=== PATIENT | male | born 1975 | race Caucasian/White ===

== ENCOUNTER 2025-07-06 21:59 | Emergency (ER) | payer BC, SELFPAY ==
--- OUTSIDE RECORDS SUMMARY | 2025-06-10 06:00 | XMS_ITS ---
Author Organization [facility] Address [address] [facility] [address] [place] [id number] Care Team Providers Care Cash Management Officer Name Role Phone Cole Jenkins Unavailable [phone] Allergies Allergen (clinical drug ingredient) Drug/Non Drug Allergy documented on EMR Reaction Allergy Type Onset Date Status Penicillin Unknown Drug Allergy Active Substance with sulfonamide structure and antibacterial mechanism of action (substance) Sulfa Antibiotics Unknown Drug Allergy Active Reason For Referral Diagnosis 1 Pain in left foot (M 79.672) Diagnosis 2 Status post foot levy debbie (Z98.890) [facility] Referring Provider First Name Cole Referring Provider Last Name Gregory Referring Provider Speciality Family Pra ctice Referred Provider RAFA KENT General Notes Dari Tineo 2024 08:50:54 AM > faxed to [facility] (Dr. Kent) Referral Priority Routine REASON FOR VISIT to get established and needs Podiatry referral Medications Medication SIG (Take, Route, Frequency, Duration) Notes Start Date End Date Status Sildenafil Citrate 100 MG 1 tablet as ne eded Orally Once a day Active DULoxetine HCl 60 MG 1 capsule Orally On ce a day; Duration: 30 days 06/10/2025 Active Nabumetone 750 MG 2 tabs Orally daily; Duration: 30 days 06/10/2025 Active Lisinopril 20 MG 1 tablet Orally Once a day Active traZODone HCl 150 MG 1 tablet at bedtime Orally Once a day Active Problems Problem Type SNOMED Code ICD Code Onset Dates Problem Status W/U Status Risk Notes Problem Essential hypertension (54229932) Essential hypertension (I10) Active confirmed Problem Postprocedural states (102847132) Status post left foot surgery (Z98.890) Active confirmed Vital Signs Weight 239 lbs 06/10/2025 Blood pressure systolic 130 mm Hg 06/10/20 25 Blood pressure diastolic 80 mm Hg 025 Heart Rate 80 /min 06/10/2025 Height 74 in 06/10/2025 BMI 30.68 kg/m2 06/10/2025 Encounters Encounter Location Date Provider Diagnosis [facility] [address] [place] [id number] 06/10/2025 Colekay Jenkins Pain in left foot M7 9.672 ; Polyarthralgia M25.50 ; Essential hypertension I10 ; Depressive disorder F32.A and Status post left foot surgery Z98.890 Assessments Encounter Date Diagnosis (ICD Code) Assessment Notes Treatment Notes Treatment Clinical Notes Section Notes 06/10/2025 Pain in left foot (ICD-10 - M79.672) 06/10/2025 Polyarthralgia (ICD-10 - M25.50) 06/10/2025 Essential hypertension (ICD-10 - I10) 06/10/2025 Depressive disorder (ICD-10 - F32.A) 06/10/2025 Status post left foot surgery (ICD-10 - Z98.890) Plan Of Treatment Medication Medication Name Sig Start Date Stop Date Notes DULoxetine HCl 60 MG 1 capsule Orally On ce a day; Duration: 30 days 06/10/2025 Nabumetone 750 MG 2 tabs Orally daily; Duration: 30 days 06/10/2025 Lisinopril 20 MG 1 tablet Orally Once a day Escitalopram Oxalate 10 MG 1 tablet Orally Once a day Meloxicam 15 MG 1 tablet Orally Once a day Referrals Referral Date Details 06/10/2025 06/10/2025 Next Appt Details Follow Up: via phone to keyla castillo progress,6 Months, Reason: Progress Notes * Siddhartha LEONE BDOB:1975 ( 49 yo M)Acc No.[id number]:06/10/2025 Progress Notes Patient: Obinna GONZALO Siddhartha Méndez Provider: Honey Jenkins M.D. :1975 A ge:49 Y S ex:Male Date:06/10/2025 Address:[address] [place], [place] [address], [id number] Subjective: * Chief Complaints: * 1 . to get established and needs Podiatry referral. * HPI: H PI: 49 year old male presents with c/o Patient is here today for?Pt here to establish care, pt was preciously seen by Dr. Kang Damon in [place]. A nkle/Foot: c/o Pain P t complains of lt foot pain. Pt states he has had multiple surgeries on lt foot, last on in January 2022. Pt states pain is constant and unbearable at time. Pt requesting referral to podiatry. * Medical History: H ypertension, Osteoarthritis, Insomnia, Depression, MRSA. * Surgical History: L T Foot 03/2021, RT Hand 04/2024. * Hospitalization/Major Diagno stic Procedure: D enies Past Hospitalization. * Family History: F ather: . M other: alive 68 yrs, diagnosed with Cancer, Hypertension, Diabetes.? * Social History: C URRENT TOBACCO USE: No . C affeine: yes, frequency:. Alcohol: no. * Medications: T aking Escitalopram Oxalate 10 MG Tablet 1 tablet Orally Once a day , Taking Sildenafil Citrate 100 MG Tablet 1 tablet as needed Orally Once a day , Taking Lisinopril 20 MG Tablet 1 tablet Orally Once a day , Taking traZODone HCl 150 MG Tablet 1 tablet at bedtime Orally Once a day , Taking Meloxicam 15 MG Tablet 1 tablet Orally Once a day , Medication List reviewed and reconciled with the patient * Allergies: P enicillin, Sulfa Antibiotics. Objective: * Vitals: W t: 239, Temp: 98.0, BP: 130/80, HR: 80, Nurse: mil, Ht: 74, BMI:30.68. * Examination: G eneral Examination: General Appearance: N AD. H EENT: u nremarkable.?Neck: s upple, no lymphadenopathy. H eart: R SR. L ungs: c lear to auscultation. N eurologic Exam: I ntact, gait normal. S kin: n ormal, no rash. P eripheral pulses: n ormal (2+) bilaterally. E xtremities: n o leg edema, post surgical changes present on dorsum of left foot, low arch noted. Assessment: * Assessment: 1. P ain in left foot - M79.672 (Primary) 2 . P olyarthralgia - M25.50 3 . E ssential hypertension - I10 4 . D epressive disorder - F32.A 5 . S tatus post left foot surgery - Z98.890 Plan: * Treatment: 2. P olyarthralgia Stop Meloxicam Tablet, 15 MG, 1 tablet, Orally, Once a day; S tart Nabumetone Tablet, 750 MG, 2 tabs, Orally, daily, 30 days, 60 Tablet, Refills 0. 3. E ssential hypertension Continue Lisinopril Tablet, 20 MG, 1 tablet, Orally, Once a day. 4. D epressive disorder Stop Escitalopram Oxalate Tablet, 10 MG, 1 tablet, Orally, Once a day; S tart DULoxetine HCl Capsule Delayed Release Particles, 60 MG, 1 capsule, Orally, Once a day, 30 days, 30 Capsule. ? 5. O thers Referral To: RAFA KENT Reason: * Procedure Codes: 1 036F TOBACCO NON-USER, 3075F SYST BP GE 130 - 139MM HG, 3079F DIAST BP 80-89 MM HG * Follow Up: v ia phone to report progress,6 Months * Images: Billing Information: * Visit Code: 29025 Office Visit, New Pt., Level 4. * Procedure Codes: 1036F TOBACCO NON-USER. 3075F SYST BP GE 130 - 139MM HG. 3079F DIAST BP 80-89 MM HG. * Electronic signature of Carmita Jenkins MD on 07/06/2025 at 10:13 PM EST Sign off status: Pending * Provider: Honey Jenkins M.D. Date: 08/11/2024 Generated for Tong wadsworth/Josse/Ritchie on: 10:13 PM EST History and Physical Notes * HPI (History of Present Illness) Category Sub-Category Detail Notes Category Not es Ankle/Foot Pain Pt complains of lt foot pain. Pt states he has had multiple surgeries on lt foot, last on in January 2022. Pt states pain is constant and unbearable at time. Pt requesting referral to podiatry HPI Patient is here today for Pt her e to establish care, pt was preciously seen by Dr. Kang Damon in [place] Examination Category Sub-Category Detail Notes Category Not es General Examination HEENT: unremarkable Heart: RSR Lungs: clear to auscultatio n Extremities: no leg edema, post s urgical changes present on dorsum of left foot, low arch noted General Appearance: NAD Skin: normal, no rash Neurologic Exam: Intact, gait normal Neck: supple, no lymphaden opathy Peripheral pulses: normal (2+) bilatera lly Consultation Request Notes Referral Date Referring Provider Referred Provider Not es 06/10/2025 Cole Jenkins BENJAMIN
--- OUTSIDE RECORDS SUMMARY | 2025-07-06 22:13 | XMS_ITS | Patient Health Record ---
[facility] Address [address] [place] [id number] Care Team Providers Care Dietetic Tech Name Role Phone Gregory Cole Unavailable [phone] Allergies Allergen (clinical drug ingredient) Drug/Non Drug Allergy documented on EMR Reaction Allergy Type Onset Date Status Penicillin Unknown Drug Allergy Active Substance with sulfonamide structure and antibacterial mechanism of action (substance) Sulfa Antibiotics Unknown Drug Allergy Active Reason For Referral Diagnosis 1 Pain in left foot (M 79.672) Diagnosis 2 Status post foot levy debbie (Z98.890) [facility] Referring Provider First Name Cole Referring Provider Last Name Gregory Referring Provider Speciality Family [facility] Referred Provider RAFA KENT General Notes Dari Tineo 2024 08:50:54 AM > faxed to [facility] (Dr. Kent) Referral Priority Routine Medications Medication SIG (Take, Route, Frequency, Duration) [...] at bedtime Orally Once a day Active tiZANidine HCl 2 MG 1 or 2 tablets Orally 3 times a day As needed 06/11/2025 Active Problems Problem Type SNOMED Code ICD Code Onset Dates Problem Status W/U Status Risk Notes Problem Essential hypertension (74217024) Essential hypertension (I10) Active confirmed Problem Postprocedural states (361335676) Status post left foot surgery (Z98.890) Active confirmed Vital Signs Heart Rate 80 /min 06/10/2025 Blood pressure diastolic 80 mm Hg 06/10/2025 Height 74 in 06/10/2025 Blood pressure systolic 130 mm Hg 06/10/2025 Weight 239 lbs 06/10/2025 BMI 30.68 kg/m2 06/10/2025 Encounters Encounter Location Date Provider Diagnosis [facility] [address] [facility] [address] [facility] [address] [place] [id number] 06/10/2025 Cole [place] Pain in left foot M7 9.672 ; Polyarthralgia M25.50 ; Essential hypertension I10 ; Depressive disorder F32.A and Status post left foot surgery Z98.890 [facility] [address] [facility] [address] [place] [id number] 06/11/2025 Cole [place] Assessments Encounter Date Diagnosis (ICD Code) Assessment Notes Treatment Notes Treatment Clinical Notes Section Notes 06/10/2025 Polyarthralgia (ICD-10 - M25.50) 06/10/2025 Pain in left foot (ICD-10 - M79.672) 06/10/2025 Essential hypertension (ICD-10 - I10) 06/10/2025 Depressive disorder (ICD-10 - F32.A) 06/10/2025 Status post left foot surgery (ICD-10 - Z98.890) Plan Of Treatment No Information Insurance Providers Payer Name Payer Address Payer Phone Subscriber Number Group Number Insured Name Patient Relationship to Insured Coverage Start Date Coverage End Date NICO AMATO CROSSUE [facility] [address] [place] [address] [id number] Siddhartha Borrego Self - patient is the insured Medical (General) History Medical History History ICD Code hypertension osteoarthritis insomnia depression MRSA Surgical History Surgery Date(Month/Year) LT Foot 03/2021 RT Hand 04/2024
--- OUTSIDE RECORDS SUMMARY | 2025-07-06 22:13 | XMS_ITS | Data Portability ---
Author Organization [place] [facility] [address] Address [address] [facility] [address] [place] [address] Care Team Providers Care Tax Credit Leasing Consultant Name Role Phone MARCUS DUVAL Referring Provider [phone] Assessment Encounter Date Assessment Date Assessment LastModified by Organization Details LastModified Time 06/17/2025 06/17/2025 This is a 49-year-old male with a history of a left foot fracture with subsequent multiple surgeries and infection, presenting with worsening chronic left foot pain. He has severe post-traumatic arthritis of the left foot with significant deformity, including arch collapse and flatfoot, secondary to his prior trauma and naviculectomy and antibiotic spacer. Imaging review confirms extensive damage to the midfoot, particularly the talonavicular and cuneiform region, with multiple bone fragments present and severe arthritis. The patient's condition is complex and high-risk for further intervention. Any further operative management, such as a stabilizing fusion, carries a highly elevated risk of reinfection due to being seeded with staph, which could lead to a worse outcome, including potential amputation. I also would avoid steroid injections due to the risk of reactivating a latent infection. After discussion at this time we elected to proceed with conservative management and surgery as a last resort. - Imaging: Left foot X-rays were reviewed. - Findings show arch collapse and flatfoot deformity. - Multiple bone fragments are visible. - There is evidence of prior navicular bone resection and placement of an antibiotic spacer. - The talus, navicular, and cuneiform region is severely degenerated, while the calcaneocuboid and tarsometatarsal joints appear mostly preserved. High complexity, lengthy surgical discussion, prescription drug management, prescription for custom orthotics and Karolina brace. [email or web address] Not available 06/20/2025 23:22:46 Plan of Treatment Reminders Order Date Submit Date Provider Last Modified By Organization Details Last Modified Time Details Appointments None recorded. Lab None recorded. Referral None recorded. Procedures None recorded. Surgeries None recorded. Imaging XR, ankle + foot 2024 025 [facility] [address] [place], [address], 17:57:07 Medication Orders gabapentin 300 mg capsule 2024 025 [facility], [address], [address], 14:49:17 Patient TargetsNo targets recorded. Patient InstructionsNo instructions recorded. Reason for Referral None Reported. Results Created Date Observation Date Name Description Value Unit Range Abnormal Flag Note LastModifiedBy Organization Detail LastModifiedTime 06/18/2006/17/2025 XR, ankle + foot [facility] [address] [facility] [place] [address] Patiamalia morales Name: DOV morales : [address] morales 81 Orderi ng Provid er: MARCIO IN RONNA KAILEY EXAM DATE: 2024 EXAM: XR LT FOOT/A NKLE COMPLE TE COMPAR FELY: None. HISTOR Y: Left foot and ankle pain FINDIN GS: 3 views of the left ankle. No acute fractu re or disloc ation. There is modera te arthro siria of the left ankle. Small margin al osteop hytes are identi fied. 3 views of the left foot. There is severe arthro siria throug hout the hindfo ot and midfoo t. There is disorg anizat ion as well as collap se of the metata rsal bones. There is severe pes planus . This has appear ance most typica l for [place] t arthro siria. There is collap se of the talus. Bulky osteop hytes are identi fied. There is modera te hallux valgus deform ity of the first metata rsal phalan geal joint. IMPRES TIM: 1. Severe [place] t arthro siria of the hindfo ot and midfoo t. 2. Modera te arthro siria of the ankle. Interp reted By: John ulloa MD Electr onical ly Signed By: John ulloa MD on 2024 5:51 PM [id number] [facility] [address] [place], [address], 06/20/2025 23:15:58 Result Notes Documentation Provider Name and Address Organization Details Recorded Time Xr, Ankle + Foot : [facility] [address] [place] [id number] Patient Name: DOV LEONE Patient : 1975 Patient Ordering Provider: RAFA SAN EXAM DATE: 06/17/2025 EXAM: XR LT FOOT/ANKLE COMPLETE COMPARISON: None. HISTORY: Left foot and ankle pain FINDINGS: 3 views of the left ankle. No acute fracture or dislocation. There is moderate arthropathy of the left ankle. Small marginal osteophytes are identified. 3 views of the left foot. There is severe arthropathy throughout the hindfoot and midfoot. There is disorganization as well as collapse of the metatarsal bones. There is severe pes planus. This has appearance most typical for Charcot arthropathy. There is collapse of the talus. Bulky osteophytes are identified. There is moderate hallux valgus deformity of the first metatarsal phalangeal joint. IMPRESSION: 1. Severe Charcot arthropathy of the hindfoot and midfoot. 2. Moderate arthropathy of the ankle. Interpreted By: John Frazier MD [facility] [address] [place], [address], [facility] 06/20/2025 23:15:58 Medical Equipment None Reported. Allergies Allergen ID Allergen Name Allergen Category Reaction Reaction Severity Criticality Documentation Date Start Date Code Code System Note Provider Name and Address Organization Details Recorded Time 818828 Substance with sulfonami de structure and antibacte rial mechanism of action (substanc e) medicatio n Not available Not available Not available 06/17/2025 72725 8003 SNOMED Not Available abi - External Data Service - prod 13:27:44 624359 Product containin g penicilli n (product) medicatio n Not available Not available Not available 06/17/2025 76396 8001 SNOMED Tammy Post [facility] 13:36:11 Medications Name Sig Start Date Stop Date Status Note LastModified by Organization Details LastModified Time meloxicam 15 mg tablet Take 1 tablet every day by oral route. active Not Available Not Available No t Available lisinopril 20 mg tablet Take 1 tablet every day by oral route. active Not Available Not Available No t Available sildenafil 100 mg tablet Take 1 tablet every day by oral route. active Not Available Not Available No t Available trazodone 150 mg tablet Take 1 tablet twice a day by oral route. active Not Available Not Available No t Available gabapentin 300 mg capsule Take 1 capsule 3 times a day by oral route as needed for 30 days. 2024 active Not Available Not Available Not Avai lable escitalopram 10 mg tablet Take 1 tablet every day by oral route. active Not Available Not Available No t Available Vitals Date Recorded Body height Body mass index (BMI) Body weight Provider Name and Address Organization Details Last Updated DateTime 06/17/2025 187.96 cm 30.7 kg/m2 418199.58 g Tammy Post [facility] 06/17/2025 13:37:56 Social History None recorded. Functional Status None recorded. Mental Status None recorded. Family History Nothing Reported. Medical History No medical history recorded. Past Encounters Encounter ID Performer Location Encounter Start Date Encounter Closed Date Diagnosis/Indication Diagnosis SNOMED-CT Code Diagnosis ICD10 Code Diagnosis IMO Codes Diagnosis Note [id number] RAFA SAN [facility] [address] [place] [address] 06/17/2025 13:25:57 06/17/2025 14:37:53 Pain in left foot 5450079391 01142 M79.672 267308 Arthritis of left foot due to trauma 2434952578 593177 M19.172 [id number] After discussing conservati ve treatment patient would like a new pair custom orthotics but would also like an Karolina brace due to his job requiring long hours on his feet and uneven ground. We will prescribe both and recommend patient discussed with David Ku the most cost effective way to bill 1 through insurance and 1 valladares pay if insurance will not cover both. Patient states he will follow-up as needed. Discussed with patient if gabapentin works well for the next few months he will likely have to follow-up in person for refill I deem a custom Karolina brace left ankle medically necessary for foot and ankle deformity, triplanar correction , fall prevention , pain reduction, and worsening damage to the left ankle. Patient needs this brace for lifetime need. I deem custom orthotics bilateral foot and ankle medically necessary for foot and ankle deformity, triplanar correction , fall prevention , pain reduction, and worsening damage to the bilateral foot and ankle. Patient needs these custom orthotics bilateral. 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 Will try gabapentin to take only at night starting off. Health Concerns Section Related Observation LastModified by Organization Detai ls LastModified Time None Recorded Concern Status LastModified by Organization Details LastModified Time None Recorded Advance Directives Directive None Recorded Payers Insurance Date Sequence Insurance Name Policy Number Policy Johnson Covered Member ID Johnson Member ID Guarantor Name 06/17/2025 1 [place] [id number] Dov Leone [id number] Dov Leone Notes Date Note Type Note Provider Name and Address Organization Details Recorded Time 06/17/2025 text/html 06-17-25: Chief Complaint: Patient Presents to clinic today with Left Foot pain x DOI: 2019 NELLY: fractured Patient is Negative for bruising/discolorati onPatient is Negative for rednessPatient is Positive for edema Ambulatory Devices: none Injections: No Physical Therapy: none Medication: Prescription - multiples surgeries to left foot (most recent 01/2022)- started with a fracture in 2019 which turned to infection The patient is a 49 year old male presenting with worsening chronic left foot and ankle pain. The issue began five years ago when he sustained a left foot fracture after stepping in a hole, which was initially mistaken for a sprain. After approximately one month of persistent symptoms, a fracture was diagnosed, and he underwent surgery with plate and screw fixation several months later. Following the initial surgery, he continued to have pain and experienced hardware failure with broken screws, which necessitated a second surgery for hardware removal. Subsequently, the incision site became infected, leading to osteomyelitis and a third procedure to resect the navicular bone and place an antibiotic spacer. The pain in his left foot and ankle has been chronic but has worsened over the last six months, becoming particularly severe after a day of work. He reports significant stiffness and pain upon standing after a period of rest. His previous management has included custom orthotics, which are now worn out, and anti-inflammatory medications, including meloxicam and a recently started new medication, possibly diclofenac which per patient is not helping much, states gabapentin has helped in the past. Of note patient has had other soft tissue infection of his body that is staph. Documentation on this patient encounter was supported using voice-enabled Al technology. The patient consented to recording for the purpose of documenting the encounter. Provider reviewed content of the generated note prior to signature. 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
--- OUTSIDE RECORDS SUMMARY | 2025-07-06 22:13 | XMS_ITS | Continuity of Care Document ---
Author Organization [facility], ORTHOPEDICS [address] [place] [address] Care Team Providers Care Supervisor Ski Production Name Role Phone MAULEO MARCUS Referring Provider Assessment Encounter Date Assessment Date Assessment LastModified [...] prescription for custom orthotics and Karolina brace. [email or web address] Not available 06/20/2025 23:22:46 Plan of Treatment Reminders Order Date Submit Date Provider Last Modified By Organization Details Last Modified Time Details Appointments None recorded. Lab None recorded. Referral None recorded. Procedures None recorded. Surgeries None recorded. Imaging XR, ankle + foot 2024 025 [facility] [address] [place], [address], 17:57:07 Medication Orders gabapentin 300 mg capsule 2024 025 [facility], [address], [address], 14:49:17 Patient TargetsNo targets recorded. Patient InstructionsNo instructions recorded. Reason for Referral None Reported. Results Created Date Observation Date Name Description Value Unit Range Abnormal Flag Note LastModifiedBy Organization Detail LastModifiedTime 06/18/2006/17/2025 XR, ankle + foot [facility] [address] [facility] [place] [address] Patiamalia morales Name: DOV morales : 976 Hunter morales 81 Orderi Provid er: MARCIO IN MADDIEI KAILEY EXAM DATE: 2024 EXAM: XR LT [...] has appear ance most typica l for [place] t arthro siria. There is collap se of the talus. Bulky osteop hytes are identi fied. There is modera te hallux valgus deform ity of the first metata rsal phalan geal joint. IMPRES TIM: 1. 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 2. Modera te arthro siria of the ankle. Interp reted By: John ulloa MD Electr onical ly Signed By: John ulloa MD on 2024 5:51 PM [email or web address] [facility] [address] [place], [address], 06/20/2025 23:15:58 Result Notes Documentation Provider Name and Address Organization Details Recorded Time Xr, Ankle + Foot : [facility] [address] [place] [id number] Patient Name: DOV LEONE Patient : 1975 [...] By: John Frazier MD [facility] [address] [place], [address], [facility] 06/20/2025 23:15:58 Medical Equipment None Reported. Allergies Allergen ID Allergen Name Allergen Category Reaction Reaction Severity Criticality Documentation Date Start Date Code Code System Note Provider Name and Address Organization Details Recorded Time 053491 Substance with sulfonami de structure and antibacte rial mechanism of action (substanc e) medicatio n Not available Not available Not available 06/17/2025 25793 8003 SNOMED Not Available abi - External Data Service - prod 13:27:44 848738 Product containin g penicilli n (product) medicatio n Not available Not available Not available 06/17/2025 51890 8001 SNOMED Tammy Post [facility] 13:36:11 Medications Name Sig Start Date Stop [...] Updated DateTime 06/17/2025 187.96 cm 30.7 kg/m2 034474.58 g Tammy Post [facility] 06/17/2025 13:37:56 Social History None recorded. Functional Status None recorded. Mental Status None recorded. Family History Nothing Reported. Medical History No medical history recorded. 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 Will try gabapentin to take only at night starting off. Health Concerns Section Related Observation LastModified by Organization Detai ls LastModified Time None Recorded Concern Status LastModified by Organization Details LastModified Time None Recorded Payers Encounter Date Sequence Insurance Name Policy Number Policy Johnson Covered Member ID Johnson Member ID Guarantor Name 06/17/2025 1 [employer] [id number] Dov Leone [id number] Dov Leone Notes Date Note Type [...] spacer, left foot [facility] [address] [place], [address], [facility] 06/20/2025 23:25:12
[2025-07-06 22:14] VITALS: BP 147/94; PULSE 104; RESP 18; TEMP 36.9; O2SAT 94; BMI 28.8
--- NOTE | 2025-07-06 22:20 | HMH.EDGENADL ---
Discharge Plan Disposition Patient Disposition: Home, Self-Care Referrals Follow up/Referrals: Provider,Referral, [Primary Care Provider, Medical] - See instructions Activity Restrictions/Add. Instructions Additional Instructions/Restrictions: Patient is medically cleared for incarceration no emergent medical condition identified. Clinical Impressions Clinical Impression: Medical clearance for incarceration Print Language Print Language: Yi Discharge ED Provider: Sveta Cristina General Adult HPI General Stated complaint: Medical Clearance Time Seen by Provider: 07/06/25 22:15 History of Present Illness HPI narrative: Patient is a 49-year-old male brought in today by police for medical clearance prior to incarceration. Patient states that he had no intentions to come to the Emergency Department he has no physical complaints states that he had a little bit of vodka denies any other drugs. Denies any current symptoms or desire for emergent evaluation. Police in the room have no further history or concerns at the moment [facility] Disclaimer: The information contained in this section may have been updated after the patient was seen, as this information can be updated by other users. Social History Smoking Status: Never smoker alcohol intake: never current occupational status: other Travel in the last 8 weeks?: None ROS Obtained: Yes All systems reviewed & no additional complaints except as documented Physical Exam General General appearance: alert and in no apparent distress Chest Chest inspection: Present normal inspection; Absent symmetric chest wall rise Respiratory Respiratory exam: Present normal lung sounds bilaterally; Absent respiratory distress Cardiovascular Cardiovascular exam: Present regular rate and normal rhythm Neurological Exam Neurological exam: Present alert, oriented X3 and normal gait Medical Decision Making Medical Records Screening: Per USPSTF and CDC recommendations, given the prevalence of disease in our region, it is our hospital?s policy to screen for HIV and viral Hepatitis for all patients aged 18 and over and those with ongoing risk factors. José Miguel Inquiry Pt receiving controlled substance: No Medical Decision Narrative: 49-year-old awake alert oriented answer my questions appropriately has the capacity to be giving me a history denies the need or desire for any type of emergent intervention or somatic complaints at [facility]. He did admit to drinking alcohol. There is no emergency indication to do any further forensic workup at the moment as it would not change my medical decision making or management at the moment. Therefore the patient from my perspective does not have any further needs for emergent evaluation or intervention and was discharged in stable condition medically cleared to be evaluated further at the care home for incarceration. Critical Care Critical Care Time Critical Care Time: No
[2025-07-06 22:28] VITALS: BP 147/94; PULSE 104; RESP 18; TEMP 36.9; O2SAT 94
== END 2025-07-06 22:31 | disposition home or self-care (01) ==
PROVIDERS: Emergency Provider Student in an Organized Health Care Education/Training Program
DX: Z04.89 Encounter for examination and observation for other specified reasons (principal)
CPT/HCPCS: 99282